=== PATIENT | female | born 1955 | race Caucasian/White ===

== ENCOUNTER 2019-10-10 18:40 | Emergency (ER) | payer SELFPAY ==
[~2019-10-10] VITALS: Ht 154.9 cm; Wt 65.8 kg
[2019-10-10 18:43] VITALS: Ht 154.9 cm; Wt 65.8 kg
[2019-10-10 20:25] LABS: CALCIUM 9.2 mg/dL (8.5-10.1); CARBON DIOXIDE 32.8 mmol/L (21-32); CHLORIDE SERUM 102 mmol/L (98-107); CREATININE SERUM 0.9 mg/dL (0.6-1.0); GFR1 > 60 mL/min; GLUCOSE SERUM 123 mg/dL (74-106); POTASSIUM SERUM 3.3 mmol/L (3.5-5.1); SODIUM SERUM 142 mmol/L (136-145)
[2019-10-10 20:29] LABS: ALKALINE PHOSPHATASE 82 U/L (46-116); ALT/SGPT 106 U/L (14-59); AST/SGOT 55 U/L (15-37); BILIRUBIN TOTAL 0.25 mg/dL (0.20-1.00); TOTAL PROTEIN, SERUM 7.7 g/dL (6.4-8.2)
[2019-10-10 20:32] LABS: BASOPHIL % 0.4 % (0-2); PLATELET COUNT 179 x10^3mcL (130-400); RED CELL DISTRIBUTION WIDTH 12.3 % (11.5-14.5)
[2019-10-10 22:41] VITALS: BP 122/74
== END 2019-10-10 22:30 | disposition home or self-care (01) ==
LOC: ED 18:40
PROVIDERS: Emergency Medicine
DX: I10 Essential (primary) hypertension (principal); R14.2 Eructation
CPT/HCPCS: 36415; Q0092

== ENCOUNTER 2019-11-25 10:31 | Emergency (ER) | payer SELFPAY ==
[~2019-11-25] VITALS: Ht 152.4 cm; Wt 62.6 kg
[2019-11-25 10:44] VITALS: Ht 152.4 cm; Wt 62.6 kg
[2019-11-25 11:25] LABS: CALCIUM 9.5 mg/dL (8.5-10.1); CARBON DIOXIDE 31.4 mmol/L (21-32); CHLORIDE SERUM 101 mmol/L (98-107); CREATININE SERUM 0.9 mg/dL (0.6-1.0); GFR1 > 60 mL/min; GLUCOSE SERUM 121 mg/dL (74-106); POTASSIUM SERUM 3.4 mmol/L (3.5-5.1); SODIUM SERUM 140 mmol/L (136-145)
[2019-11-25 11:29] LABS: BASOPHIL % 0.4 % (0-2); PLATELET COUNT 196 x10^3mcL (130-400); RED CELL DISTRIBUTION WIDTH 12.6 % (11.5-14.5)
[2019-11-25 11:30] LABS: ALBUMIN 4.2 g/dL (3.4-5.0); ALKALINE PHOSPHATASE 78 U/L (46-116); ALT/SGPT 80 U/L (14-59); AST/SGOT 41 U/L (15-37); BILIRUBIN TOTAL 0.4 mg/dL (0.20-1.00); TOTAL PROTEIN, SERUM 8.2 g/dL (6.4-8.2)
[2019-11-25 13:01] VITALS: BP 142/74
== END 2019-11-25 13:01 | disposition home or self-care (01) ==
LOC: ED 10:31
PROVIDERS: Emergency Medicine
DX: R07.89 Other chest pain (principal); E87.6 Hypokalemia; R74.0 Nonspecific elevation of levels of transaminase and lactic acid dehydrogenase [LDH]; I10 Essential (primary) hypertension
CPT/HCPCS: 36415; Q0092

== ENCOUNTER 2020-04-12 01:50 | Emergency (ER) | payer MEDICAID ==
[~2020-04-12] VITALS: Ht 154.9 cm; Wt 60.9 kg
[2020-04-12 01:57] VITALS: Ht 154.9 cm; Wt 60.9 kg
[2020-04-12 04:13] VITALS: BP 121/73
== END 2020-04-12 04:13 | disposition home or self-care (01) ==
LOC: ED 01:50
DX: F41.1 Generalized anxiety disorder (principal); I10 Essential (primary) hypertension